=== PATIENT | female | born 1960 | race Caucasian/White ===

== ENCOUNTER 2022-03-09 11:00 | Day surgery (SDC) | payer MEDICARE ==
[~2022-03-09 11:00] MED LIST: ACET-66 PO; BENZ1TAB10 PO; BISM262O28 PO; BUSP30TA2 PO; CALC-1125 PO; CLOT30SO TP; DIPH25TA20 PO; DIPH30C TP; DIVA-76 PO; DOCU100T PO; GUAI100S13 PO; HC1C1.5 TP; IBAN150T21 PO; IBUP-2733 PO; LEVO75TA10 PO; LIDO240G3 TP; LORA1TAB3 PO; MOM30 PO; QUET300T19 PO; SIMV-43 PO; [UNRECOGNIZED DRUG - OTHER]; [UNRECOGNIZED DRUG - OTHER]
[2022-03-09] MEDS ORDERED: FENTANYL CITRATE PF 50 MCG/1 ML 2ML VIAL ONE (12:11)
[2022-03-09] MEDS ORDERED: MIDAZOLAM HCL 1 MG/ML 2ML VIAL ONE (12:11)
[2022-03-09] MEDS ORDERED: PROPOFOL 10 MG/ML 20ML VIAL IV ONE (12:11)
[2022-03-09] MEDS ORDERED: LIDOCAINE PF 100MG/5ML (2%) SYRINGE 5ML ONE (12:11)
[2022-03-09 12:35] VITALS: BP 152/85
[2022-03-09 12:40] VITALS: BP 155/80
[2022-03-09 12:45] VITALS: BP 156/78
[2022-03-09 12:50] VITALS: BP 155/78
[2022-03-09 12:55] VITALS: BP 154/77
[2022-03-09 13:00] VITALS: BP 152/70
== END 2022-03-09 13:21 | disposition home or self-care (01) ==
LOC: ENDO 11:00 → DAH 11:00 → ENDO 13:21
PROVIDERS: ATTEND Internal Medicine Gastroenterology
DX: Z12.11 Encounter for screening for malignant neoplasm of colon (principal); Z20.822 Contact with and (suspected) exposure to COVID-19; D12.8 Benign neoplasm of rectum; D12.2 Benign neoplasm of ascending colon; E78.5 Hyperlipidemia, unspecified; E78.00 Pure hypercholesterolemia, unspecified; E03.9 Hypothyroidism, unspecified; F79 Unspecified intellectual disabilities; Z79.899 Other long term (current) drug therapy; Z86.010 Personal history of colon polyps; Z79.890 Hormone replacement therapy
CPT/HCPCS: 87426; 45385; J2001; J2704; A4620; A4215; A4223; A4222; A4221; A4663; A4216; J7030; A4606; J2250; J3010